=== PATIENT | male | born 1960 | race Caucasian/White ===

== ENCOUNTER 2017-06-07 08:23 | Day surgery (SDC) | payer OTHER ==
[~2017-06-07] VITALS: Ht 170.2 cm; Wt 98.3 kg
[2017-06-07 09:29] VITALS: Ht 170.2 cm; Wt 98.3 kg
[2017-06-07] MEDS ORDERED: PROPOFOL 40 ML ONE (09:30)
[2017-06-07] MEDS ORDERED: pepcid PO (09:40)
[2017-06-07] MEDS ORDERED: atenolol (09:40)
[2017-06-07 09:41] VITALS: BP 125/80; PULSE 88; RESP 27
[2017-06-07] MEDS ORDERED: atenolol PO (09:41)
[2017-06-07] MEDS ORDERED: tramadol PO (09:41)
[2017-06-07] MEDS ORDERED: PROPOFOL 20 ML ONE (10:24)
--- NOTE | 2017-06-07 10:37 | OPPN ---
Date/Time of Note Date/Time of Note DATE: 06/07/17 TIME: 10:35 Operative Report Preoperative Diagnosis Abdominal pain Positive occult blood in stool Postoperative Diagnosis Multiple superficial ulcers on the gastric antrum Large sigmoid colon polyp was removed using the snare and electrocautery 2 small sigmoid polyps were removed using biopsy forceps Internal hemorrhoids Operation/Procedure Performed Esophagogastroduodenoscopy and biopsy Colonoscopy biopsy and polypectomy Clipping of the polypectomy site Surgeon see signature line esl instructional assistant None Anesthesia: MAC Estimated blood loss: none Transfusion Required none Specimen Gastric mucosal biopsy Colon polyps Grafts/Implants none Complications none JOSE A CASTRO MD Jun 07, 2017 10:37
[2017-06-07 10:50] VITALS: BP 109/79; RESP 18
--- NOTE | 2017-06-07 11:19 | GILP ---
DATE OF PROCEDURE: NAME OF PROCEDURES: 1. Esophagogastroduodenoscopy and biopsy. 2. Colonoscopy, biopsy and polypectomy. 3. Clipping of the polypectomy site. INDICATION FOR THE PROCEDURE: Mr. Drake Wade is a 57-year-old male patient who had upper abdo herve pain, not responding to therapy. The patient also was noted to have positive occult blood in stool, so the patient was scheduled for endoscopy and colonoscopy for further evaluation. The procedures and possible complications were well explained to the patient. He understood and con sented to the procedure. DESCRIPTION OF PROCEDURE: Under the influence of anesthesia, the gastroscope was carefully introduc ed into the esophagus and under direct vision, it was advanced to the stomach and through the pyloru s into the duodenal bulb and descending duodenum. FINDINGS: ESOPHAGUS: The patient had gastroesophageal reflux disease. STOMACH: He had gastritis and multiple ulcers on the gastric antrum. Biopsies were taken for H. py colten test and it was positive. DUODENUM: Normal. The colonoscope was carefully introduced in the rectum and under direct vision, it was advanced all the way to the cecum. FINDINGS: The patient had a large sigmoid colon polyp and it was removed using the snare and electr ocautery. Clipping of the polypectomy site was done because of the thick stalk the patient had to p revent bleeding. The patient also had 2 small sigmoid polyps, and they were removed using the biops y forceps. He was noted to have internal hemorrhoids. He tolerated the procedures very well and there was no complication from the procedures. At the end of the procedures, he was awake with stable vital signs and he was discharged home to the care of h is family. IMPRESSION: 1. Gastroesophageal reflux disease. 2. Multiple superficial gastric ulcers on the antrum and biopsy for H. pylori was positive. 3. Colonoscopy all the way to the cecum. 4. Large sigmoid colon polyp was removed using the snare and electrocautery. 5. Clipping of the polypectomy site was done to prevent bleeding because of the thick stalk the pat ient had. 6. Two small sigmoid colon polyps were removed using the biopsy forceps. 7. Internal hemorrhoids. PLAN: 1. Zantac 300 mg p.o. b.i.d. for 14 days. 2. Doxycycline 100 mg p.o. b.i.d. for 14 days. 3. Flagyl 500 mg p.o. b.i.d. for 14 days. 4. Pepto-Bismol 2 tablets p.o. q.i.d. for 14 days. 5. Await histopathology reports. 6. Next screening colonoscopy in 5 years. Dictated By: JOSE A BERG/GRADY Conf#: [id number] DID#: [id number]
== END 2017-06-07 11:18 | disposition home or self-care (01) ==
LOC: GIL 08:23
PROVIDERS: ATTEND Internal Medicine Gastroenterology
DX: R10.9 Unspecified abdominal pain (principal); R19.5 Other fecal abnormalities; K25.9 Gastric ulcer, unspecified as acute or chronic, without hemorrhage or perforation; K64.8 Other hemorrhoids; D12.5 Benign neoplasm of sigmoid colon; E66.9 Obesity, unspecified; Z68.33 Body mass index [BMI] 33.0-33.9, adult; I10 Essential (primary) hypertension; K21.9 Gastro-esophageal reflux disease without esophagitis
CPT/HCPCS: 43239; 45380; 45385; 87081; 88305; Z7610